=== PATIENT | male | born 1940 | race Caucasian/White ===

== ENCOUNTER 2018-11-19 15:24 | Outpatient (CLI) | payer MEDICARE, OTHER ==
[~2018-11-19] VITALS: Ht 165.1 cm; Wt 99.8 kg
[~2018-11-19 15:24] MED LIST: CEFU500T66 PO
[2018-11-19] MEDS ORDERED: albuterol 2.5 MG/3 ML nebule NEB ONE (16:05)
== END 2018-11-19 23:59 | disposition home or self-care (01) ==
LOC: RT 15:24
PROVIDERS: ATTEND Internal Medicine
DX: J44.9 Chronic obstructive pulmonary disease, unspecified (principal); I11.0 Hypertensive heart disease with heart failure; I50.9 Heart failure, unspecified; Z88.6 Allergy status to analgesic agent; Z91.018 Allergy to other foods
CPT/HCPCS: 94060; 94760

== ENCOUNTER 2018-12-15 16:45 | Inpatient (IN) | payer MEDICARE, OTHER | END 2018-12-18 12:40 | disposition home or self-care (01) | LOC: ER 16:45 → ED HOLD 20:35 → SUR 3N 23:30 | DX: N17.9 Acute kidney failure, unspecified (principal); I50.33 Acute on chronic diastolic (congestive) heart failure; I13.0 Hypertensive heart and chronic kidney disease with heart failure and stage 1 through stage 4 chronic kidney disease, or unspecified chronic kidney disease; Z96.641 Presence of right artificial hip joint; I48.91 Unspecified atrial fibrillation; N18.9 Chronic kidney disease, unspecified; G70.00 Myasthenia gravis without (acute) exacerbation; G47.33 Obstructive sleep apnea (adult) (pediatric) ==

== ENCOUNTER 2024-06-02 15:53 | Inpatient (IN) | payer MEDICARE, OTHER ==
[~2024-06-02] VITALS: Ht 177.8 cm; Wt 103.6 kg
[~2024-06-02 15:53] MED LIST changes: +ACET-2119 PO; +ALPR-624 PO; +ASPI-611 PO; -CEFU500T66 PO; +DOCU240C26 PO; +DOXY-411 PO; +FURO-149 PO; +HYDR-4383 PO; +IRBE150T51 PO; +METO1TAB25 PO; +MYCO250C46 PO; +ONDA4TAB6 PO; +PYRI60TA PO; +[UNRECOGNIZED DRUG - CODE] PO
[2024-06-02 16:14] LABS: BASOPHILS # (AUTO) 0.1 X10'3 (0-0.2); BASOPHILS % (AUTO) 0.7 % (0-1); EOSINOPHILS % (AUTO) 0.2 % (0-6); HEMATOCRIT 40.7 % (42.0-52.0); LYMPHOCYTES # (AUTO) 1.1 X10'3 (1.1-4.8); LYMPHOCYTES % (AUTO) 10.7 % (21-51); MEAN CORPUSCULAR HEMOGLOBIN 31.3 PG (27.0-31.0); MEAN CORPUSCULAR HGB CONC 31.9 g/dL (33.0-36.5); MEAN CORPUSCULAR VOLUME 98.3 FL (78-98); MEAN PLATELET VOLUME 7.4 FL (7.4-10.4); MONOCYTES # (AUTO) 0.7 X10'3 (0-0.9); MONOCYTES % (AUTO) 7.3 % (2-12); NEUTROPHILS # (AUTO) 8.2 X10'3 (1.8-7.7); NEUTROPHILS % (AUTO) 81.1 % (42-75); PLATELET COUNT 309 X10'3 (140-440); RED BLOOD COUNT 4.14 X10'6 (4.70-6.10); RED CELL DISTRIBUTION WIDTH 15.1 % (11.5-14.5); WHITE BLOOD COUNT 10.1 X10'3 (4.5-11.0)
[2024-06-02] MEDS ORDERED: diltiazem 5mg/ml 5ml inj. IV ONE (16:20)
[2024-06-02 16:28] LABS: ALANINE AMINOTRANSFERASE 8 U/L (12-78); ALBUMIN 4.2 G/DL (3.4-5.0); ALBUMIN/GLOBULIN RATIO 1.2 (1.1-1.5); ALKALINE PHOSPHATASE 98 IU/L (46-116); ANION GAP 11 (8-16); ASPARTATE AMINO TRANSFERASE 35 U/L (10-37); BILIRUBIN,TOTAL 0.8 MG/DL (0.1-1.0); BLOOD UREA NITROGEN 48 MG/DL (7-18); BUN/CREATININE RATIO 31.2 (10.0-20.0); CALCIUM 9.2 MG/DL (8.5-10.1); CHLORIDE 101 MMOL/L (99-107); CREATININE 1.54 MG/DL (0.60-1.10); GLUCOSE 114 MG/DL (70-104); POTASSIUM 5.3 MMOL/L (3.5-5.1); SODIUM 135 MMOL/L (135-145); TOTAL CARBON DIOXIDE 22.7 MMOL/L (24-32); TOTAL PROTEIN 7.6 G/DL (6.4-8.2); eCRCL 38 ML/MIN; eGFR 43 ML/MIN
[2024-06-02 16:35] LABS: PRO BRAIN NATRIURETIC PEPTIDE 10549 PG/ML (0-450)
[2024-06-02] MEDS: furosemide 10 MG/1 ML 10ml inj IV ONE (16:53)
[2024-06-02] MEDS: diltiazem 5mg/ml 5ml inj. IV ONE (17:01)
[2024-06-02] MEDS ORDERED: magnesium sulf-water 4G/100mL 100 ML IV PRN (18:25)
[2024-06-02] MEDS ORDERED: magnesium sulf-water 2g/50mL 50 ML IV PRN (18:25)
[2024-06-02] MEDS ORDERED: ondansetron/PF 4mg/2ml inj IV PRN (18:25)
[2024-06-02] MEDS ORDERED: potassium Cl 20 mEq SR tablet PO PRN ×2 (18:25)
[2024-06-02] MEDS ORDERED: bisacodyl 10mg suppository rectal RC PRN (18:25)
[2024-06-02] MEDS ORDERED: potassium Cl 40MEQ/1/2NS 520ml 520 ML IV PRN (18:25)
[2024-06-02] MEDS ORDERED: mag hydrox/Alum hydrox/simeth 30ml oral suspension PO PRN (18:25)
[2024-06-02] MEDS ORDERED: SPIR25TA5 PO (18:26)
[2024-06-02] MEDS ORDERED: MYCO500T5 PO (18:27)
[2024-06-02] MEDS ORDERED: APIX5TAB3 PO (18:29)
[2024-06-02] MEDS ORDERED: SACU1TAB PO (18:29)
[2024-06-02] MEDS ORDERED: PYRI60TA PO (18:33)
[2024-06-02] MEDS: PERFLUTREN PROTEIN-A MICROSPHR (Optison) 0.22 MG/ML 3ML VIAL IV ONE (18:50)
[2024-06-02] MEDS: K and/or MAG REPLACEMENT MC SCH (20:00)
[2024-06-02] MEDS: docusate sod 100mg capsule PO SCH (20:00)
[2024-06-02] MEDS: furosemide 40mg/4ml inj IV SCH (20:13)
[2024-06-02] MEDS: metoprolol tartrate 25mg tablet PO SCH (20:14)
[2024-06-02] MEDS: apixaban 2.5mg tablet PO SCH (20:14)
[2024-06-02 21:00] VITALS: BP 134/75; PULSE 94; RESP 20; TEMP 98.2; O2SAT 96
[2024-06-02 22:00] VITALS: BP 132/67; PULSE 94; RESP 28; TEMP 97; O2SAT 100
[2024-06-02] MEDS: sacubitril/valsartan 24mg-26mg tablet PO SCH (22:11)
[2024-06-02] MEDS: pyridostigmine br 60mg tablet PO SCH (22:11)
[2024-06-02] MEDS: mycophenolate mofetil 250mg capsule PO SCH (22:12)
[2024-06-03] VITALS (7 sets, daily range): BP systolic 107–134; BP diastolic 60–97; PULSE 75–92; RESP 16–24; TEMP 97.3–97.8; O2SAT 97–100
[2024-06-03] MEDS: acetaminophen 325mg tablet PO PRN ×2 (02:39→23:44)
[2024-06-03] MEDS ORDERED: ALPRAZolam 0.25mg tablet PO PRN (03:20)
[2024-06-03] MEDS: ALPRAZolam 0.5mg tablet PO PRN (03:44)
[2024-06-03 06:01] LABS: BASOPHILS % (AUTO) 0.3 % (0-1); EOSINOPHILS % (AUTO) 0.2 % (0-6); HEMATOCRIT 37.4 % (42.0-52.0); HEMOGLOBIN 12.1 g/dl (14.0-17.9); LYMPHOCYTES # (AUTO) 1.1 X10'3 (1.1-4.8); LYMPHOCYTES % (AUTO) 11.7 % (21-51); MEAN CORPUSCULAR HEMOGLOBIN 31.7 PG (27.0-31.0); MEAN CORPUSCULAR HGB CONC 32.5 g/dL (33.0-36.5); MEAN CORPUSCULAR VOLUME 97.8 FL (78-98); MEAN PLATELET VOLUME 7.8 FL (7.4-10.4); NEUTROPHILS % (AUTO) 76.8 % (42-75); PLATELET COUNT 266 X10'3 (140-440); RED BLOOD COUNT 3.82 X10'6 (4.70-6.10); WHITE BLOOD COUNT 9.1 X10'3 (4.5-11.0)
[2024-06-03 06:22] LABS: ALANINE AMINOTRANSFERASE 20 U/L (12-78); ALBUMIN 3.7 G/DL (3.4-5.0); ALBUMIN/GLOBULIN RATIO 1.2 (1.1-1.5); ALKALINE PHOSPHATASE 88 IU/L (46-116); ANION GAP 13 (8-16); ASPARTATE AMINO TRANSFERASE 22 U/L (10-37); BILIRUBIN,TOTAL 0.8 MG/DL (0.1-1.0); BLOOD UREA NITROGEN 47 MG/DL (7-18); BUN/CREATININE RATIO 30.7 (10.0-20.0); CALCIUM 8.7 MG/DL (8.5-10.1); CHLORIDE 101 MMOL/L (99-107); CREATININE 1.53 MG/DL (0.60-1.10); GLUCOSE 107 MG/DL (70-104); POTASSIUM 4.6 MMOL/L (3.5-5.1); SODIUM 136 MMOL/L (135-145); TOTAL CARBON DIOXIDE 22.1 MMOL/L (24-32); TOTAL PROTEIN 6.9 G/DL (6.4-8.2); eCRCL 38 ML/MIN; eGFR 44 ML/MIN
[2024-06-03] MEDS: spironolactone 25 MG tablet PO SCH (09:14)
[2024-06-03] MEDS ORDERED: ACET-3414 (21:00)
[2024-06-04 02:00] VITALS: BP 110/53; PULSE 94; RESP 21; TEMP 97.2; O2SAT 97
[2024-06-04] MEDS: nystatin 15 GM powder TP SCH (03:51)
[2024-06-04 06:00] VITALS: BP 116/69; PULSE 95; RESP 27; TEMP 97.2; O2SAT 97
[2024-06-04 06:07] LABS: BASOPHILS % (AUTO) 0.3 % (0-1); EOSINOPHILS # (AUTO) 0.1 X10'3 (0-0.9); EOSINOPHILS % (AUTO) 0.7 % (0-6); HEMATOCRIT 38.4 % (42.0-52.0); HEMOGLOBIN 12.3 g/dl (14.0-17.9); LYMPHOCYTES # (AUTO) 1.1 X10'3 (1.1-4.8); MEAN CORPUSCULAR HEMOGLOBIN 31.5 PG (27.0-31.0); MEAN CORPUSCULAR HGB CONC 31.9 g/dL (33.0-36.5); MEAN CORPUSCULAR VOLUME 98.8 FL (78-98); MONOCYTES # (AUTO) 0.9 X10'3 (0-0.9); MONOCYTES % (AUTO) 11.8 % (2-12); NEUTROPHILS # (AUTO) 5.6 X10'3 (1.8-7.7); NEUTROPHILS % (AUTO) 73.2 % (42-75); PLATELET COUNT 262 X10'3 (140-440); RED BLOOD COUNT 3.88 X10'6 (4.70-6.10); RED CELL DISTRIBUTION WIDTH 15.1 % (11.5-14.5); WHITE BLOOD COUNT 7.6 X10'3 (4.5-11.0)
[2024-06-04 06:21] LABS: ALANINE AMINOTRANSFERASE 17 U/L (12-78); ALBUMIN 3.6 G/DL (3.4-5.0); ALBUMIN/GLOBULIN RATIO 1.2 (1.1-1.5); ALKALINE PHOSPHATASE 83 IU/L (46-116); ANION GAP 10 (8-16); ASPARTATE AMINO TRANSFERASE 22 U/L (10-37); BILIRUBIN,TOTAL 0.6 MG/DL (0.1-1.0); BLOOD UREA NITROGEN 53 MG/DL (7-18); BUN/CREATININE RATIO 35.1 (10.0-20.0); CALCIUM 8.6 MG/DL (8.5-10.1); CHLORIDE 104 MMOL/L (99-107); CREATININE 1.51 MG/DL (0.60-1.10); GLUCOSE 129 MG/DL (70-104); POTASSIUM 4.3 MMOL/L (3.5-5.1); SODIUM 137 MMOL/L (135-145); TOTAL CARBON DIOXIDE 23.2 MMOL/L (24-32); TOTAL PROTEIN 6.7 G/DL (6.4-8.2); eCRCL 38 ML/MIN; eGFR 44 ML/MIN
[2024-06-04 08:00] VITALS: RESP 27; O2SAT 97
[2024-06-04] MEDS: metoprolol succinate 25mg (24-HOUR) SR. Tablet PO SCH (08:54)
[2024-06-04 11:00] VITALS: BP 105/63; PULSE 101; RESP 26; TEMP 96.7; O2SAT 97
[2024-06-04] MEDS ORDERED: APIX2.5T PO (14:46)
[2024-06-04] MEDS ORDERED: METO-384 PO (14:46)
== END 2024-06-04 18:13 | disposition home or self-care (01) | DRG 291 ==
LOC: ER 15:53 → ED HOLD 17:26 → UNDOADMIN 18:21 → ED HOLD 20:40 → PCU 3S 20:40
PROVIDERS: ADMIT Family Medicine; ATTEND Family Medicine
DX: I13.0 Hypertensive heart and chronic kidney disease with heart failure and stage 1 through stage 4 chronic kidney disease, or unspecified chronic kidney disease (principal); I50.23 Acute on chronic systolic (congestive) heart failure; I48.20 Chronic atrial fibrillation, unspecified; G70.00 Myasthenia gravis without (acute) exacerbation; E87.5 Hyperkalemia; E78.5 Hyperlipidemia, unspecified; G47.33 Obstructive sleep apnea (adult) (pediatric); I87.2 Venous insufficiency (chronic) (peripheral); N18.9 Chronic kidney disease, unspecified; Z88.6 Allergy status to analgesic agent; Z79.82 Long term (current) use of aspirin; Z79.01 Long term (current) use of anticoagulants; Z79.899 Other long term (current) drug therapy; Z83.3 Family history of diabetes mellitus; Z95.810 Presence of automatic (implantable) cardiac defibrillator; Z88.8 Allergy status to other drugs, medicaments and biological substances; Z91.048 Other nonmedicinal substance allergy status
CPT/HCPCS: 36415; 71045; 80053; 83735; 83880; 84484; 85025; 87081; 93005; 93306; 97161; 97530; 99285; A4615; G0378; J1940; J3490; J7517

== ENCOUNTER 2024-07-09 13:40 | Inpatient (IN) | payer MEDICARE, OTHER ==
[~2024-07-09] VITALS: Ht 167.6 cm; Wt 102.7 kg
[~2024-07-09 13:40] MED LIST changes: +ACET-3414; +APIX2.5T PO; -ASPI-611 PO; -DOXY-411 PO; -IRBE150T51 PO; +METO-384 PO; -METO1TAB25 PO; -MYCO250C46 PO; +MYCO500T5 PO; +SACU1TAB PO; +SPIR25TA5 PO; -[UNRECOGNIZED DRUG - CODE] PO
[2024-07-09] MEDS: diltiazem 5mg/ml 5ml inj. IV ONE (14:07)
[2024-07-09 14:29] LABS: BASOPHILS % (AUTO) 0.2 % (0-1); EOSINOPHILS % (AUTO) 0 % (0-6); HEMATOCRIT 39.4 % (42.0-52.0); HEMOGLOBIN 12.4 g/dl (14.0-17.9); LYMPHOCYTES # (AUTO) 0.9 X10'3 (1.1-4.8); LYMPHOCYTES % (AUTO) 6.5 % (21-51); MEAN CORPUSCULAR HEMOGLOBIN 30.3 PG (27.0-31.0); MEAN CORPUSCULAR HGB CONC 31.5 g/dL (33.0-36.5); MEAN CORPUSCULAR VOLUME 96.3 FL (78-98); MEAN PLATELET VOLUME 7.2 FL (7.4-10.4); MONOCYTES # (AUTO) 0.8 X10'3 (0-0.9); MONOCYTES % (AUTO) 5.9 % (2-12); NEUTROPHILS # (AUTO) 11.9 X10'3 (1.8-7.7); NEUTROPHILS % (AUTO) 87.4 % (42-75); PLATELET COUNT 352 X10'3 (140-440); RED BLOOD COUNT 4.09 X10'6 (4.70-6.10); RED CELL DISTRIBUTION WIDTH 14.3 % (11.5-14.5); WHITE BLOOD COUNT 13.6 X10'3 (4.5-11.0)
[2024-07-09 14:36] LABS: ALANINE AMINOTRANSFERASE 17 U/L (12-78); ALBUMIN 3.9 G/DL (3.4-5.0); ALBUMIN/GLOBULIN RATIO 1.3 (1.1-1.5); ALKALINE PHOSPHATASE 110 IU/L (46-116); ANION GAP 17 (8-16); ASPARTATE AMINO TRANSFERASE 35 U/L (10-37); BILIRUBIN,TOTAL 0.7 MG/DL (0.1-1.0); BLOOD UREA NITROGEN 52 MG/DL (7-18); BUN/CREATININE RATIO 26.4 (10.0-20.0); CALCIUM 9.2 MG/DL (8.5-10.1); CHLORIDE 94 MMOL/L (99-107); CREATININE 1.97 MG/DL (0.60-1.10); GLUCOSE 140 MG/DL (70-104); POTASSIUM 4.6 MMOL/L (3.5-5.1); SODIUM 128 MMOL/L (135-145); TOTAL CARBON DIOXIDE 17.3 MMOL/L (24-32); eCRCL 26 ML/MIN; eGFR 33 ML/MIN
[2024-07-09] MEDS: diltiazem-NS 100mg/100ml 100 ML IV SCH (14:36)
[2024-07-09 14:38] LABS: BILIRUBIN,URINE NEGATIVE (Neg); CLARITY,URINE CLOUDY (Clear); COLOR,URINE YELLOW (Yellow); GLUCOSE, URINE NEGATIVE (Neg); KETONES,URINE NEGATIVE (Neg); LEUKOCYTE ESTERASE ,URINE SMALL (Neg); NITRITES, URINE NEGATIVE (Neg); OCCULT BLOOD,URINE TRACE-INTACT (Neg); PH,URINE 5.5 (4.8-8.0); PROTEIN,URINE 100 mg/dl (Neg); UROBILINOGEN,URINE 0.2 E.U/dL (0.2-1.0)
[2024-07-09 14:42] LABS: UA COLLECTION TYPE CLN CATCH MIDSTREAM
[2024-07-09 14:43] LABS: SQUAMOUS EPITHELIAL CELL,UR MODERATE /LPF (FEW)
[2024-07-09 14:44] LABS: BILIRUBIN,DIRECT 0.4 MG/DL (0-0.3); ETHANOL < 10 MG/DL (<10); PRO BRAIN NATRIURETIC PEPTIDE 19308 PG/ML (0-450)
[2024-07-09 14:45] LABS: WBC CLUMPS,URINE MODERATE /HPF (NEGATIVE); WBC,URINE TNTC /HPF (0-4)
[2024-07-09 14:46] LABS: AMORPHOUS URATES 2+; BACTERIA,URINE 2+ /HPF (Neg); TRANSITIONAL EPI CELLS,URINE FEW /HPF
[2024-07-09] MEDS: normal saline 500ml IV soln 500 ML IV ONE (15:00)
[2024-07-09] MEDS: CefTRIAXone 2gm/D5W 50ml BAG 50 ML IV ONE (15:19)
[2024-07-09] MEDS ORDERED: acetaminophen 650mg rectal suppository RC PRN (15:50)
[2024-07-09] MEDS ORDERED: magnesium sulf-water 2g/50mL 50 ML IV PRN (15:50)
[2024-07-09] MEDS ORDERED: potassium Cl 40MEQ/1/2NS 520ml 520 ML IV PRN (15:50)
[2024-07-09] MEDS ORDERED: ondansetron/PF 4mg/2ml inj IV PRN (15:50)
[2024-07-09] MEDS ORDERED: magnesium Cl slow-release 64mg tablet PO PRN (15:50)
[2024-07-09] MEDS ORDERED: potassium Cl 20 mEq SR tablet PO PRN ×2 (15:50)
[2024-07-09] MEDS ORDERED: magnesium sulf-water 4G/100mL 100 ML IV PRN (15:50)
[2024-07-09] MEDS: normal saline 1000ml 1,000 ML IV SCH (16:01)
[2024-07-09] MEDS ORDERED: MYCO250C46 PO (16:35)
[2024-07-09] MEDS ORDERED: ALPR0.255 PO (16:35)
[2024-07-09] MEDS ORDERED: FURO40TA4 PO (16:43)
[2024-07-09] MEDS ORDERED: PYRI60TA PO ×2 (16:43→16:44)
[2024-07-09 23:50] VITALS: BP 138/65; PULSE 61; RESP 18; TEMP 97.7; O2SAT 93
[2024-07-09] MEDS: K and/or MAG REPLACEMENT MC SCH (23:50)
[2024-07-10 06:00] VITALS: BP 121/61; PULSE 78; RESP 13; TEMP 97.4; O2SAT 96
[2024-07-10] MEDS: mycophenolate mofetil 250mg capsule PO SCH (06:47)
[2024-07-10] MEDS: pyridostigmine br 60mg tablet PO SCH (06:48)
[2024-07-10] MEDS: sacubitril/valsartan 24mg-26mg tablet PO SCH (06:48)
[2024-07-10 08:03] LABS: BASOPHILS % (AUTO) 0.3 % (0-1); EOSINOPHILS % (AUTO) 0.1 % (0-6); HEMATOCRIT 36.5 % (42.0-52.0); HEMOGLOBIN 11.7 g/dl (14.0-17.9); LYMPHOCYTES # (AUTO) 1.5 X10'3 (1.1-4.8); LYMPHOCYTES % (AUTO) 14.9 % (21-51); MEAN CORPUSCULAR HEMOGLOBIN 30.9 PG (27.0-31.0); MEAN CORPUSCULAR HGB CONC 32.1 g/dL (33.0-36.5); MEAN CORPUSCULAR VOLUME 96.3 FL (78-98); MEAN PLATELET VOLUME 7.7 FL (7.4-10.4); MONOCYTES # (AUTO) 1.2 X10'3 (0-0.9); MONOCYTES % (AUTO) 11.9 % (2-12); NEUTROPHILS # (AUTO) 7.3 X10'3 (1.8-7.7); NEUTROPHILS % (AUTO) 72.8 % (42-75); PLATELET COUNT 322 X10'3 (140-440); RED BLOOD COUNT 3.79 X10'6 (4.70-6.10); RED CELL DISTRIBUTION WIDTH 13.9 % (11.5-14.5)
[2024-07-10 08:33] LABS: ALBUMIN 3.5 G/DL (3.4-5.0); ANION GAP 17 (8-16); BLOOD UREA NITROGEN 56 MG/DL (7-18); BUN/CREATININE RATIO 28.1 (10.0-20.0); CALCIUM 8.6 MG/DL (8.5-10.1); CHLORIDE 97 MMOL/L (99-107); CREATININE 1.99 MG/DL (0.60-1.10); GLUCOSE 89 MG/DL (70-104); POTASSIUM 4.4 MMOL/L (3.5-5.1); SODIUM 132 MMOL/L (135-145); TOTAL CARBON DIOXIDE 18.2 MMOL/L (24-32); eCRCL 25 ML/MIN; eGFR 32 ML/MIN
[2024-07-10] MEDS: apixaban 2.5mg tablet PO SCH (09:10)
[2024-07-10] MEDS: metoprolol succinate 25mg (24-HOUR) SR. Tablet PO SCH (09:12)
[2024-07-10 10:00] VITALS: BP 116/64; PULSE 86; RESP 14; TEMP 97.6; O2SAT 96
[2024-07-10] MEDS: albumin (human) 25% 100 ML IV solution IV ONE (15:02)
[2024-07-10] MEDS: acetaminophen 325mg tablet PO PRN (15:07)
[2024-07-10 18:00] VITALS: BP 145/65; PULSE 71; RESP 16; TEMP 97.3; O2SAT 95
[2024-07-10 22:00] VITALS: BP 136/50; PULSE 69; RESP 16; TEMP 98.1; O2SAT 95
[2024-07-11 06:00] VITALS: BP 133/71; PULSE 73; RESP 20; TEMP 98.4; O2SAT 94
[2024-07-11 07:06] LABS: BASOPHILS % (AUTO) 0.2 % (0-1); EOSINOPHILS % (AUTO) 0 % (0-6); HEMATOCRIT 39.5 % (42.0-52.0); HEMOGLOBIN 12.3 g/dl (14.0-17.9); LYMPHOCYTES # (AUTO) 1.3 X10'3 (1.1-4.8); LYMPHOCYTES % (AUTO) 13.1 % (21-51); MEAN CORPUSCULAR HEMOGLOBIN 30.4 PG (27.0-31.0); MEAN CORPUSCULAR HGB CONC 31.1 g/dL (33.0-36.5); MEAN CORPUSCULAR VOLUME 97.8 FL (78-98); MEAN PLATELET VOLUME 7.2 FL (7.4-10.4); MONOCYTES # (AUTO) 0.9 X10'3 (0-0.9); NEUTROPHILS # (AUTO) 7.5 X10'3 (1.8-7.7); NEUTROPHILS % (AUTO) 77.7 % (42-75); PLATELET COUNT 310 X10'3 (140-440); RED BLOOD COUNT 4.04 X10'6 (4.70-6.10); RED CELL DISTRIBUTION WIDTH 14.8 % (11.5-14.5); WHITE BLOOD COUNT 9.6 X10'3 (4.5-11.0)
[2024-07-11 07:16] LABS: ALBUMIN 3.7 G/DL (3.4-5.0); ANION GAP 17 (8-16); BLOOD UREA NITROGEN 61 MG/DL (7-18); BUN/CREATININE RATIO 30.2 (10.0-20.0); CALCIUM 8.8 MG/DL (8.5-10.1); CHLORIDE 98 MMOL/L (99-107); CREATININE 2.02 MG/DL (0.60-1.10); GLUCOSE 119 MG/DL (70-104); POTASSIUM 4.6 MMOL/L (3.5-5.1); SODIUM 134 MMOL/L (135-145); TOTAL CARBON DIOXIDE 18.8 MMOL/L (24-32); eCRCL 25 ML/MIN; eGFR 32 ML/MIN
[2024-07-11 10:00] VITALS: BP 121/69; PULSE 72; RESP 16; TEMP 98.1; O2SAT 94
[2024-07-11] MEDS: albumin (Human) 5% 250ml 250 ML IV ONE (16:52)
[2024-07-11] MEDS: furosemide 20 MG/2 ML vial IV SCH (16:54)
[2024-07-11 18:00] VITALS: BP 131/73; PULSE 71; RESP 16; TEMP 97.4; O2SAT 96
[2024-07-11 20:00] VITALS: RESP 16; O2SAT 96
[2024-07-11] MEDS: CefTRIAXone 2gm/D5W 50ml BAG 50 ML IV SCH (21:31)
[2024-07-11 22:00] VITALS: BP_SYST 110; BP_SYST 131; BP_DIAS 73; BP_DIAS 83; PULSE 62; PULSE 71; RESP 16; RESP 18; TEMP 90; TEMP 97.4; O2SAT 93; O2SAT 96
[2024-07-12] VITALS (9 sets, daily range): BP systolic 115–135; BP diastolic 66–96; PULSE 74–91; RESP 16–25; TEMP 97.5–98.7; O2SAT 92–100
[2024-07-12] MEDS: ALPRAZolam 0.25mg tablet PO PRN (02:17)
[2024-07-12] MEDS: furosemide 40mg/4ml inj ONE (03:04)
[2024-07-12 03:05] LABS: ABG BASE EXCESS -20.2 mmol/L (-2.0-3.0); ABG HCO3 9.8 mmol/L (21.0-28.0); ABG OXYGEN SATURATION 97.1 % (94.0-98.0); ABG PCO2 (T) 35.3 mmHg (35.0-48.0); ABG PH (T) 7.053 (7.350-7.450); ABG PO2 (T) 103.8 mmHg (83.0-108.0); ALLEN'S TEST Modified; FCOHb 0.9 % (0.5-1.5); FHHb 2.9 % (0.0-5.0); FLOW 6 L/min; FMetHb 0.3 % (0.0-1.5); FO2Hb 95.9 % (94.0-98.0); MODE Simple Mask; PATIENT TEMPERATURE 35.8; TOTAL HEMOGLOBIN 14.3 G/dl (13.5-17.5)
[2024-07-12] MEDS: furosemide 40mg/4ml inj IV ONE ×2 (03:07→09:22)
[2024-07-12 03:18] LABS: BASOPHILS % (AUTO) 0.2 % (0-1); EOSINOPHILS % (AUTO) 0.1 % (0-6); HEMOGLOBIN 12.8 g/dl (14.0-17.9); LYMPHOCYTES # (AUTO) 2.7 X10'3 (1.1-4.8); LYMPHOCYTES % (AUTO) 18.9 % (21-51); MEAN CORPUSCULAR HEMOGLOBIN 30.8 PG (27.0-31.0); MEAN CORPUSCULAR HGB CONC 31.3 g/dL (33.0-36.5); MEAN CORPUSCULAR VOLUME 98.5 FL (78-98); MEAN PLATELET VOLUME 7.5 FL (7.4-10.4); MONOCYTES # (AUTO) 1.4 X10'3 (0-0.9); NEUTROPHILS % (AUTO) 70.8 % (42-75); PLATELET COUNT 321 X10'3 (140-440); RED BLOOD COUNT 4.16 X10'6 (4.70-6.10); RED CELL DISTRIBUTION WIDTH 15.1 % (11.5-14.5); WHITE BLOOD COUNT 14.2 X10'3 (4.5-11.0)
[2024-07-12 03:40] LABS: ALBUMIN 3.8 G/DL (3.4-5.0); ANION GAP 17 (8-16); BLOOD UREA NITROGEN 64 MG/DL (7-18); BUN/CREATININE RATIO 29.2 (10.0-20.0); CALCIUM 8.3 MG/DL (8.5-10.1); CHLORIDE 100 MMOL/L (99-107); CREATININE 2.19 MG/DL (0.60-1.10); GLUCOSE 199 MG/DL (70-104); MAGNESIUM 2.2 MG/DL (1.5-2.4); POTASSIUM 4.2 MMOL/L (3.5-5.1); SODIUM 133 MMOL/L (135-145); TOTAL CARBON DIOXIDE 16.1 MMOL/L (24-32); eCRCL 23 ML/MIN; eGFR 29 ML/MIN
[2024-07-12 03:54] LABS: PRO BRAIN NATRIURETIC PEPTIDE > 30000 PG/ML (0-450)
[2024-07-12] MEDS: sodium bicarbonate 1meq/ml inj 150 ML in dextrose 5%-water 1,000 ML IV SCH (04:36)
[2024-07-12 10:22] LABS: ALBUMIN 3.6 G/DL (3.4-5.0); ANION GAP 11 (8-16); BLOOD UREA NITROGEN 67 MG/DL (7-18); BUN/CREATININE RATIO 31.5 (10.0-20.0); CALCIUM 8.6 MG/DL (8.5-10.1); CHLORIDE 101 MMOL/L (99-107); CREATININE 2.13 MG/DL (0.60-1.10); GLUCOSE 182 MG/DL (70-104); POTASSIUM 4.3 MMOL/L (3.5-5.1); SODIUM 134 MMOL/L (135-145); TOTAL CARBON DIOXIDE 22.3 MMOL/L (24-32); eCRCL 24 ML/MIN; eGFR 30 ML/MIN
[2024-07-12] MEDS ORDERED: HYDROcodone/acetaminophen 5mg/325mg tablet PO PRN (12:30)
[2024-07-12 13:56] LABS: PRO BRAIN NATRIURETIC PEPTIDE > 30000 PG/ML (0-450)
[2024-07-12] MEDS: nystatin 15 GM powder TP SCH (14:15)
[2024-07-12 14:43] LABS: ABG BASE EXCESS -7.8 mmol/L (-2.0-3.0); ABG HCO3 18.4 mmol/L (21.0-28.0); ABG OXYGEN SATURATION 98.3 % (94.0-98.0); ABG PCO2 (T) 38.7 mmHg (35.0-48.0); ABG PH (T) 7.291 (7.350-7.450); ABG PO2 (T) 107.1 mmHg (83.0-108.0); ALLEN'S TEST POSITIVE; FCOHb 0.5 % (0.5-1.5); FHHb 1.7 % (0.0-5.0); FLOW 2 L/min; FMetHb 0.3 % (0.0-1.5); FO2Hb 97.5 % (94.0-98.0); MODE NASAL CANNULA; PATIENT TEMPERATURE 36.5; TOTAL HEMOGLOBIN 13.2 G/dl (13.5-17.5)
[2024-07-12] MEDS: pyridostigmine br 60mg tablet PO SCH (22:09)
[2024-07-13] VITALS (8 sets, daily range): BP systolic 103–139; BP diastolic 54–81; PULSE 83–93; RESP 15–24; TEMP 97.4–98.5; O2SAT 91–98
[2024-07-13] MEDS ORDERED: morphine ORAL 5MG/0.25 ML (Conc. morphine) oral syringe PO PRN (11:40)
[2024-07-13] MEDS ORDERED: LORazepam 0.5 MG tablet PO PRN (11:40)
[2024-07-13] MEDS: acetaminophen 325mg tablet PO PRN (17:41)
[2024-07-13] MEDS: mycophenolate mofetil 250mg capsule PO SCH (17:42)
[2024-07-13] MEDS: pyridostigmine br 60mg tablet PO SCH (17:42)
[2024-07-13] MEDS: spironolactone 25 MG tablet PO SCH (18:02)
[2024-07-13] MEDS: sacubitril/valsartan 24mg-26mg tablet PO SCH (20:08)
[2024-07-13] MEDS: furosemide 40mg tablet PO SCH (20:08)
[2024-07-13] MEDS: levoFLOXACIN-Levaquin 500mg/D5 100 ML IV SCH (23:25)
[2024-07-14] VITALS (7 sets, daily range): BP systolic 100–145; BP diastolic 55–79; PULSE 81–96; RESP 17–23; TEMP 96.3–98.2; O2SAT 94–99
[2024-07-14] MEDS: furosemide 40mg/4ml inj IV ONE (03:20)
[2024-07-14] MEDS ORDERED: morphine 10mg/0.5ml (conc. morphine) oral syringe PO PRN (09:51)
[2024-07-14 09:55] LABS: TOTAL PROTEIN,URINE RANDOM 161.8 MG/DL
[2024-07-14] MEDS: HYDROcodone/acetaminophen 5mg/325mg tablet PO PRN (15:04)
[2024-07-14 15:07] LABS: BASOPHILS % (AUTO) 0.1 % (0-1); EOSINOPHILS % (AUTO) 0.3 % (0-6); HEMATOCRIT 39.1 % (42.0-52.0); HEMOGLOBIN 12.2 g/dl (14.0-17.9); LYMPHOCYTES # (AUTO) 1.1 X10'3 (1.1-4.8); LYMPHOCYTES % (AUTO) 10.7 % (21-51); MEAN CORPUSCULAR HEMOGLOBIN 30.7 PG (27.0-31.0); MEAN CORPUSCULAR HGB CONC 31.3 g/dL (33.0-36.5); MEAN CORPUSCULAR VOLUME 98.1 FL (78-98); MEAN PLATELET VOLUME 7.5 FL (7.4-10.4); MONOCYTES # (AUTO) 1.5 X10'3 (0-0.9); MONOCYTES % (AUTO) 13.8 % (2-12); NEUTROPHILS # (AUTO) 7.9 X10'3 (1.8-7.7); NEUTROPHILS % (AUTO) 75.1 % (42-75); PLATELET COUNT 277 X10'3 (140-440); RED BLOOD COUNT 3.99 X10'6 (4.70-6.10); RED CELL DISTRIBUTION WIDTH 14.8 % (11.5-14.5); WHITE BLOOD COUNT 10.6 X10'3 (4.5-11.0)
[2024-07-14 15:39] LABS: ALANINE AMINOTRANSFERASE 18 U/L (12-78); ALBUMIN 3.4 G/DL (3.4-5.0); ALBUMIN/GLOBULIN RATIO 1.3 (1.1-1.5); ALKALINE PHOSPHATASE 85 IU/L (46-116); ANION GAP 10 (8-16); ASPARTATE AMINO TRANSFERASE 19 U/L (10-37); BILIRUBIN,TOTAL 0.4 MG/DL (0.1-1.0); BLOOD UREA NITROGEN 78 MG/DL (7-18); BUN/CREATININE RATIO 33.9 (10.0-20.0); CHLORIDE 103 MMOL/L (99-107); GLUCOSE 124 MG/DL (70-104); POTASSIUM 4.1 MMOL/L (3.5-5.1); SODIUM 138 MMOL/L (135-145); TOTAL CARBON DIOXIDE 24.6 MMOL/L (24-32); TOTAL PROTEIN 6.1 G/DL (6.4-8.2); eCRCL 22 ML/MIN; eGFR 27 ML/MIN
[2024-07-15] VITALS (7 sets, daily range): BP systolic 95–113; BP diastolic 52–68; PULSE 81–129; RESP 16–24; TEMP 97.5–98.1; O2SAT 92–97
[2024-07-15] MEDS: furosemide 40mg tablet PO SCH (09:32)
[2024-07-15] MEDS ORDERED: albuterol 2.5 MG/3 ML nebule NEB PRN (10:35)
[2024-07-15 13:59] LABS: ABG BASE EXCESS -4.9 mmol/L (-2.0-3.0); ABG OXYGEN SATURATION 98.6 % (94.0-98.0); ABG PCO2 (T) 35.8 mmHg (35.0-48.0); ABG PH (T) 7.362 (7.350-7.450); ABG PO2 (T) 110.2 mmHg (83.0-108.0); ALLEN'S TEST POSITIVE; FCOHb 0.6 % (0.5-1.5); FHHb 1.4 % (0.0-5.0); FMetHb 0.3 % (0.0-1.5); FO2Hb 97.7 % (94.0-98.0); MODE NASAL CANNULA; PATIENT TEMPERATURE 36.7; TOTAL HEMOGLOBIN 12.9 G/dl (13.5-17.5)
[2024-07-16] MEDS ORDERED: levoFLOXACIN-Levaquin 250mg/D5 50 ML IV SCH (08:00)
== END 2024-07-15 16:40 | DRG 291 ==
LOC: ER 13:41 → ED HOLD 15:53 → ORTHO 4S 23:49 → PCU 3S 07-12 16:00
PROVIDERS: ADMIT Internal Medicine; ATTEND Internal Medicine
DX: I13.0 Hypertensive heart and chronic kidney disease with heart failure and stage 1 through stage 4 chronic kidney disease, or unspecified chronic kidney disease (principal); G93.41 Metabolic encephalopathy; I50.23 Acute on chronic systolic (congestive) heart failure; J96.00 Acute respiratory failure, unspecified whether with hypoxia or hypercapnia; E87.1 Hypo-osmolality and hyponatremia; N17.9 Acute kidney failure, unspecified; I48.20 Chronic atrial fibrillation, unspecified; N39.0 Urinary tract infection, site not specified; E87.20 Acidosis, unspecified; Z66 Do not resuscitate; N18.30 Chronic kidney disease, stage 3 unspecified; T50.2X5A Adverse effect of carbonic-anhydrase inhibitors, benzothiadiazides and other diuretics, initial encounter; Z88.8 Allergy status to other drugs, medicaments and biological substances; Z95.810 Presence of automatic (implantable) cardiac defibrillator; Z79.899 Other long term (current) drug therapy; Z88.6 Allergy status to analgesic agent; Z91.09 Other allergy status, other than to drugs and biological substances; Z79.01 Long term (current) use of anticoagulants; Y92.89 Other specified places as the place of occurrence of the external cause; Z51.5 Encounter for palliative care; Z83.3 Family history of diabetes mellitus
CPT/HCPCS: 36415; 36600; 71045; 76705; 80048; 80053; 80076; 80320; 81001; 82570; 82803; 82948; 83735; 83880; 83935; 84133; 84156; 84300; 84484; 84540; 85018; 85025; 87077; 87081; 87088; 87186; 93005; 94760; 94799; 96365; 96367; 97110; 97116; 97161; 97162; 97530; 97535; 99285; A4314; A4615; A5200; A6590; G0378; J0696; J1940; J1956; J3490; J7030; J7040; J7070; J7517; P9045; P9047

== ENCOUNTER 2024-09-30 13:47 | Inpatient (IN) | payer MEDICARE, OTHER ==
[~2024-09-30] VITALS: Ht 165.1 cm; Wt 89.0 kg
[~2024-09-30 13:47] MED LIST changes: -ACET-2119 PO; -ACET-3414; -ALPR-624 PO; +ALPR0.255 PO; -APIX2.5T PO; -DOCU240C26 PO; -FURO-149 PO; +FURO40TA4 PO; -HYDR-4383 PO; +MYCO250C46 PO; -MYCO500T5 PO; -ONDA4TAB6 PO
[2024-09-30] MEDS: CefTRIAXone 2gm/D5W 50ml BAG 50 ML IV ONE (15:10)
[2024-09-30 15:20] LABS: BILIRUBIN,URINE SMALL (Neg); CLARITY,URINE TURBID (Clear); COLOR,URINE YELLOW (Yellow); GLUCOSE, URINE NEGATIVE (Neg); KETONES,URINE TRACE mg/dl (Neg); LEUKOCYTE ESTERASE ,URINE MODERATE (Neg); NITRITES, URINE NEGATIVE (Neg); OCCULT BLOOD,URINE LARGE (Neg); PH,URINE 5.5 (4.8-8.0); PROTEIN,URINE 100 mg/dl (Neg); UROBILINOGEN,URINE 0.2 E.U/dL (0.2-1.0)
[2024-09-30 15:29] LABS: BACTERIA,URINE 2+ /HPF (Neg); UA COLLECTION TYPE CLN CATCH MIDSTREAM; WBC,URINE TNTC /HPF (0-4)
[2024-09-30 15:30] LABS: WBC CLUMPS,URINE MODERATE /HPF (NEGATIVE)
[2024-09-30 16:01] LABS: BASOPHILS # (AUTO) 0.1 X10'3 (0-0.2); BASOPHILS % (AUTO) 0.4 % (0-1); EOSINOPHILS % (AUTO) 0 % (0-6); HEMOGLOBIN 10.7 g/dl (14.0-17.9); LYMPHOCYTES # (AUTO) 1.5 X10'3 (1.1-4.8); LYMPHOCYTES % (AUTO) 7.8 % (21-51); MEAN CORPUSCULAR HEMOGLOBIN 28.4 PG (27.0-31.0); MEAN CORPUSCULAR HGB CONC 31.5 g/dL (33.0-36.5); MEAN CORPUSCULAR VOLUME 90.4 FL (78-98); MEAN PLATELET VOLUME 7.2 FL (7.4-10.4); MONOCYTES # (AUTO) 1.7 X10'3 (0-0.9); MONOCYTES % (AUTO) 8.7 % (2-12); NEUTROPHILS # (AUTO) 16.1 X10'3 (1.8-7.7); NEUTROPHILS % (AUTO) 83.1 % (42-75); PLATELET COUNT 494 X10'3 (140-440); RED BLOOD COUNT 3.77 X10'6 (4.70-6.10); RED CELL DISTRIBUTION WIDTH 16.5 % (11.5-14.5); WHITE BLOOD COUNT 19.4 X10'3 (4.5-11.0)
[2024-09-30 16:13] LABS: ALBUMIN 3.8 G/DL (3.4-5.0); ANION GAP 14 (8-16); BLOOD UREA NITROGEN 76 MG/DL (7-18); BUN/CREATININE RATIO 26.6 (10.0-20.0); CHLORIDE 100 MMOL/L (99-107); CREATININE 2.86 MG/DL (0.60-1.10); GLUCOSE 124 MG/DL (70-104); POTASSIUM 4.7 MMOL/L (3.5-5.1); SODIUM 135 MMOL/L (135-145); eCRCL 17 ML/MIN; eGFR 21 ML/MIN
[2024-09-30] MEDS: normal saline 1000ML IV soln IVB ONE (17:26)
[2024-09-30 18:08] LABS: PRO BRAIN NATRIURETIC PEPTIDE > 30000 PG/ML (0-450)
[2024-09-30] MEDS ORDERED: potassium Cl 40MEQ/1/2NS 520ml 520 ML IV PRN (18:25)
[2024-09-30] MEDS ORDERED: magnesium Cl slow-release 64mg tablet PO PRN (18:25)
[2024-09-30] MEDS ORDERED: magnesium sulf-water 4G/100mL 100 ML IV PRN (18:25)
[2024-09-30] MEDS ORDERED: docusate sod 100mg capsule PO PRN (18:25)
[2024-09-30] MEDS ORDERED: magnesium hydroxide 30ml (MOM) UD suspension PO PRN (18:25)
[2024-09-30] MEDS ORDERED: morphine 2 MG/ML inj. syringe IV PRN (18:25)
[2024-09-30] MEDS ORDERED: mag hydrox/Alum hydrox/simeth 30ml oral suspension PO PRN (18:25)
[2024-09-30] MEDS ORDERED: magnesium sulf-water 2g/50mL 50 ML IV PRN (18:25)
[2024-09-30] MEDS ORDERED: potassium Cl 20 mEq SR tablet PO PRN ×2 (18:25)
[2024-09-30] MEDS ORDERED: METO-411 PO (19:06)
[2024-09-30] MEDS ORDERED: APIX2.5T PO (19:06)
[2024-09-30 19:25] LABS: HEMOGLOBIN A1C 5.5 % (4.5-6.2)
[2024-09-30] MEDS: K and/or MAG REPLACEMENT MC SCH (20:00)
[2024-09-30] MEDS ORDERED: heparin, porcine 5000 units/ml vial SQ SCH (20:00)
[2024-09-30] MEDS: morphine 2 MG/ML inj. syringe IV PRN (20:22)
[2024-09-30] MEDS: furosemide 10 MG/1 ML 10ml inj IV SCH (20:23)
[2024-09-30] MEDS: apixaban 2.5mg tablet PO SCH (20:23)
[2024-09-30] MEDS: ondansetron/PF 4mg/2ml inj IV PRN (20:24)
[2024-09-30 22:30] VITALS: BP 114/60; PULSE 73; RESP 18; TEMP 97.8; O2SAT 100
[2024-10-01 06:00] VITALS: BP 97/55; PULSE 81; RESP 16; TEMP 98.3; O2SAT 98
[2024-10-01 06:08] LABS: BASOPHILS # (AUTO) 0.1 X10'3 (0-0.2); BASOPHILS % (AUTO) 0.9 % (0-1); EOSINOPHILS % (AUTO) 0.4 % (0-6); HEMOGLOBIN 9.5 g/dl (14.0-17.9); LYMPHOCYTES # (AUTO) 1.6 X10'3 (1.1-4.8); LYMPHOCYTES % (AUTO) 13.4 % (21-51); MEAN CORPUSCULAR HEMOGLOBIN 28.7 PG (27.0-31.0); MEAN CORPUSCULAR HGB CONC 31.6 g/dL (33.0-36.5); MEAN CORPUSCULAR VOLUME 90.8 FL (78-98); MEAN PLATELET VOLUME 7.2 FL (7.4-10.4); MONOCYTES # (AUTO) 1.2 X10'3 (0-0.9); MONOCYTES % (AUTO) 9.6 % (2-12); NEUTROPHILS # (AUTO) 9.3 X10'3 (1.8-7.7); NEUTROPHILS % (AUTO) 75.7 % (42-75); PLATELET COUNT 368 X10'3 (140-440); RED CELL DISTRIBUTION WIDTH 16.7 % (11.5-14.5); WHITE BLOOD COUNT 12.2 X10'3 (4.5-11.0)
[2024-10-01 06:55] LABS: ALANINE AMINOTRANSFERASE 9 U/L (12-78); ALBUMIN 3.1 G/DL (3.4-5.0); ALBUMIN/GLOBULIN RATIO 0.9 (1.1-1.5); ALKALINE PHOSPHATASE 70 IU/L (46-116); ANION GAP 13 (8-16); ASPARTATE AMINO TRANSFERASE 11 U/L (10-37); BILIRUBIN,TOTAL 0.7 MG/DL (0.1-1.0); BLOOD UREA NITROGEN 78 MG/DL (7-18); BUN/CREATININE RATIO 32.6 (10.0-20.0); CALCIUM 8.8 MG/DL (8.5-10.1); CHLORIDE 105 MMOL/L (99-107); CREATININE 2.39 MG/DL (0.60-1.10); GLUCOSE 103 MG/DL (70-104); MAGNESIUM 2.3 MG/DL (1.5-2.4); POTASSIUM 4.8 MMOL/L (3.5-5.1); SODIUM 137 MMOL/L (135-145); TOTAL CARBON DIOXIDE 19.5 MMOL/L (24-32); TOTAL PROTEIN 6.5 G/DL (6.4-8.2); eCRCL 20 ML/MIN; eGFR 26 ML/MIN
[2024-10-01] MEDS: CefTRIAXone/D5W-Rocephin 1gm 50 ML IV SCH (08:41)
[2024-10-01 10:00] VITALS: BP 135/45; PULSE 84; RESP 18; TEMP 97.8; O2SAT 97
[2024-10-01] MEDS: pyridostigmine br 60mg tablet PO SCH (13:59)
[2024-10-01 18:00] VITALS: BP 109/64; PULSE 76; RESP 16; TEMP 98.2; O2SAT 97
[2024-10-01] MEDS: sulfamethoxazole/trimethoprim DS (800/160mg) tablet PO SCH (19:47)
[2024-10-01] MEDS: mycophenolate mofetil 250mg capsule PO SCH (19:48)
[2024-10-01] MEDS ORDERED: apixaban 2.5mg tablet PO SCH (20:00)
[2024-10-01 22:00] VITALS: BP 109/57; PULSE 57; RESP 16; TEMP 97.8; O2SAT 99
[2024-10-02] MEDS: acetaminophen 325mg tablet PO PRN (03:57)
[2024-10-02 06:00] VITALS: BP 111/54; PULSE 67; RESP 21; TEMP 98.5; O2SAT 93
[2024-10-02 07:02] LABS: BASOPHILS # (AUTO) 0.1 X10'3 (0-0.2); BASOPHILS % (AUTO) 1.2 % (0-1); EOSINOPHILS # (AUTO) 0.1 X10'3 (0-0.9); EOSINOPHILS % (AUTO) 0.5 % (0-6); HEMATOCRIT 29.6 % (42.0-52.0); HEMOGLOBIN 9.6 g/dl (14.0-17.9); LYMPHOCYTES # (AUTO) 1.1 X10'3 (1.1-4.8); LYMPHOCYTES % (AUTO) 11.3 % (21-51); MEAN CORPUSCULAR HEMOGLOBIN 29.4 PG (27.0-31.0); MEAN CORPUSCULAR HGB CONC 32.4 g/dL (33.0-36.5); MEAN CORPUSCULAR VOLUME 90.7 FL (78-98); MEAN PLATELET VOLUME 7.7 FL (7.4-10.4); MONOCYTES # (AUTO) 0.9 X10'3 (0-0.9); MONOCYTES % (AUTO) 9.2 % (2-12); NEUTROPHILS # (AUTO) 7.7 X10'3 (1.8-7.7); NEUTROPHILS % (AUTO) 77.8 % (42-75); PLATELET COUNT 375 X10'3 (140-440); RED BLOOD COUNT 3.26 X10'6 (4.70-6.10); RED CELL DISTRIBUTION WIDTH 16.5 % (11.5-14.5); WHITE BLOOD COUNT 9.9 X10'3 (4.5-11.0)
[2024-10-02 07:16] LABS: ALANINE AMINOTRANSFERASE 9 U/L (12-78); ALBUMIN/GLOBULIN RATIO 0.9 (1.1-1.5); ALKALINE PHOSPHATASE 68 IU/L (46-116); ANION GAP 13 (8-16); ASPARTATE AMINO TRANSFERASE 11 U/L (10-37); BILIRUBIN,TOTAL 0.5 MG/DL (0.1-1.0); BLOOD UREA NITROGEN 75 MG/DL (7-18); CALCIUM 8.9 MG/DL (8.5-10.1); CHLORIDE 104 MMOL/L (99-107); CREATININE 2.42 MG/DL (0.60-1.10); GLUCOSE 103 MG/DL (70-104); MAGNESIUM 2.4 MG/DL (1.5-2.4); POTASSIUM 4.6 MMOL/L (3.5-5.1); SODIUM 136 MMOL/L (135-145); TOTAL CARBON DIOXIDE 19.2 MMOL/L (24-32); TOTAL PROTEIN 6.5 G/DL (6.4-8.2); eCRCL 20 ML/MIN; eGFR 26 ML/MIN
[2024-10-02 10:00] VITALS: BP 87/48; PULSE 89; RESP 15; TEMP 98; O2SAT 96
[2024-10-02 14:17] LABS: PRO BRAIN NATRIURETIC PEPTIDE > 30000 PG/ML (0-450)
[2024-10-02 18:00] VITALS: BP 104/52; PULSE 65; RESP 16; TEMP 97.5; O2SAT 97
[2024-10-02 20:00] VITALS: RESP 20; O2SAT 95
[2024-10-02 22:00] VITALS: BP 126/56; PULSE 104; RESP 16; TEMP 98.5; O2SAT 97
[2024-10-03 06:00] VITALS: BP 135/87; PULSE 72; RESP 16; TEMP 98.4; O2SAT 96
[2024-10-03 07:45] LABS: BASOPHILS # (AUTO) 0.1 X10'3 (0-0.2); BASOPHILS % (AUTO) 0.6 % (0-1); EOSINOPHILS # (AUTO) 0.1 X10'3 (0-0.9); EOSINOPHILS % (AUTO) 0.8 % (0-6); HEMATOCRIT 32.3 % (42.0-52.0); HEMOGLOBIN 10.3 g/dl (14.0-17.9); LYMPHOCYTES # (AUTO) 1.1 X10'3 (1.1-4.8); MEAN CORPUSCULAR HEMOGLOBIN 29.1 PG (27.0-31.0); MEAN CORPUSCULAR HGB CONC 31.9 g/dL (33.0-36.5); MEAN CORPUSCULAR VOLUME 91.2 FL (78-98); MEAN PLATELET VOLUME 7.1 FL (7.4-10.4); NEUTROPHILS # (AUTO) 6.3 X10'3 (1.8-7.7); NEUTROPHILS % (AUTO) 73.6 % (42-75); PLATELET COUNT 366 X10'3 (140-440); RED BLOOD COUNT 3.54 X10'6 (4.70-6.10); RED CELL DISTRIBUTION WIDTH 16.3 % (11.5-14.5); WHITE BLOOD COUNT 8.5 X10'3 (4.5-11.0)
[2024-10-03 08:00] VITALS: RESP 16; O2SAT 96
[2024-10-03 08:07] LABS: ALANINE AMINOTRANSFERASE 8 U/L (12-78); ALBUMIN 3.3 G/DL (3.4-5.0); ALBUMIN/GLOBULIN RATIO 0.9 (1.1-1.5); ALKALINE PHOSPHATASE 75 IU/L (46-116); ANION GAP 12 (8-16); ASPARTATE AMINO TRANSFERASE 14 U/L (10-37); BILIRUBIN,TOTAL 0.5 MG/DL (0.1-1.0); BLOOD UREA NITROGEN 71 MG/DL (7-18); BUN/CREATININE RATIO 29.7 (10.0-20.0); CALCIUM 8.7 MG/DL (8.5-10.1); CHLORIDE 106 MMOL/L (99-107); CREATININE 2.39 MG/DL (0.60-1.10); GLUCOSE 96 MG/DL (70-104); MAGNESIUM 2.2 MG/DL (1.5-2.4); POTASSIUM 4.6 MMOL/L (3.5-5.1); SODIUM 139 MMOL/L (135-145); TOTAL CARBON DIOXIDE 21.1 MMOL/L (24-32); TOTAL PROTEIN 6.9 G/DL (6.4-8.2); eCRCL 20 ML/MIN; eGFR 26 ML/MIN
[2024-10-03 10:00] VITALS: BP 108/67; PULSE 98; RESP 14; TEMP 97.9; O2SAT 97
[2024-10-03 18:00] VITALS: BP 120/57; PULSE 52; RESP 14; TEMP 98.3; O2SAT 96
[2024-10-03 21:00] VITALS: O2SAT 96
[2024-10-03 22:00] VITALS: BP 130/59; PULSE 81; RESP 17; TEMP 97.7; O2SAT 98
[2024-10-04] MEDS: MEROPENEM 1GM/NS 100ML IVPB 100 ML IV SCH (00:26)
[2024-10-04] MEDS: HYDROcodone/acetaminophen 5mg/325mg tablet PO PRN (02:30)
[2024-10-04] MEDS ORDERED: MEROPENEM 1GM/NACL 50ML IVPB 50 ML IV SCH (06:21)
[2024-10-04 07:00] LABS: BASOPHILS # (AUTO) 0.1 X10'3 (0-0.2); BASOPHILS % (AUTO) 0.7 % (0-1); EOSINOPHILS # (AUTO) 0.1 X10'3 (0-0.9); EOSINOPHILS % (AUTO) 1.1 % (0-6); HEMATOCRIT 31.6 % (42.0-52.0); HEMOGLOBIN 10.2 g/dl (14.0-17.9); LYMPHOCYTES # (AUTO) 1.2 X10'3 (1.1-4.8); LYMPHOCYTES % (AUTO) 14.9 % (21-51); MEAN CORPUSCULAR HEMOGLOBIN 29.3 PG (27.0-31.0); MEAN CORPUSCULAR HGB CONC 32.2 g/dL (33.0-36.5); MEAN CORPUSCULAR VOLUME 90.9 FL (78-98); MEAN PLATELET VOLUME 7.7 FL (7.4-10.4); MONOCYTES # (AUTO) 1.1 X10'3 (0-0.9); MONOCYTES % (AUTO) 14.6 % (2-12); NEUTROPHILS # (AUTO) 5.4 X10'3 (1.8-7.7); NEUTROPHILS % (AUTO) 68.7 % (42-75); PLATELET COUNT 354 X10'3 (140-440); RED BLOOD COUNT 3.48 X10'6 (4.70-6.10); RED CELL DISTRIBUTION WIDTH 16.6 % (11.5-14.5); WHITE BLOOD COUNT 7.8 X10'3 (4.5-11.0)
[2024-10-04 07:56] LABS: ALBUMIN 3.1 G/DL (3.4-5.0); ALBUMIN/GLOBULIN RATIO 0.9 (1.1-1.5); ALKALINE PHOSPHATASE 69 IU/L (46-116); ANION GAP 14 (8-16); ASPARTATE AMINO TRANSFERASE 16 U/L (10-37); BILIRUBIN,TOTAL 0.4 MG/DL (0.1-1.0); BLOOD UREA NITROGEN 62 MG/DL (7-18); CALCIUM 8.4 MG/DL (8.5-10.1); CHLORIDE 104 MMOL/L (99-107); GLUCOSE 101 MG/DL (70-104); MAGNESIUM 2.2 MG/DL (1.5-2.4); POTASSIUM 4.3 MMOL/L (3.5-5.1); SODIUM 139 MMOL/L (135-145); TOTAL CARBON DIOXIDE 20.6 MMOL/L (24-32); TOTAL PROTEIN 6.7 G/DL (6.4-8.2); eCRCL 21 ML/MIN; eGFR 27 ML/MIN
[2024-10-04 08:18] LABS: ALANINE AMINOTRANSFERASE 6 U/L (12-78)
[2024-10-04] MEDS: cefpodoxime proxetil 100mg tablet PO SCH (09:09)
[2024-10-04 09:49] VITALS: RESP 16; O2SAT 97
[2024-10-04] MEDS ORDERED: FURO-150 PO (11:56)
[2024-10-04] MEDS ORDERED: CEFP100T7 PO (11:56)
[2024-10-04] MEDS ORDERED: LACT1CAP26 PO (11:56)
== END 2024-10-04 16:57 | disposition home health service (06) | DRG 689 ==
LOC: ER 13:48 → ED HOLD 17:20 → ORTHO 4S 22:20
PROVIDERS: ADMIT Internal Medicine; ATTEND Internal Medicine
DX: N39.0 Urinary tract infection, site not specified (principal); N17.0 Acute kidney failure with tubular necrosis; I13.2 Hypertensive heart and chronic kidney disease with heart failure and with stage 5 chronic kidney disease, or end stage renal disease; R65.10 Systemic inflammatory response syndrome (SIRS) of non-infectious origin without acute organ dysfunction; J98.11 Atelectasis; I50.22 Chronic systolic (congestive) heart failure; N18.5 Chronic kidney disease, stage 5; I48.91 Unspecified atrial fibrillation; R73.9 Hyperglycemia, unspecified; Z66 Do not resuscitate; B96.20 Unspecified Escherichia coli [E. coli] as the cause of diseases classified elsewhere; Z83.3 Family history of diabetes mellitus; Z95.810 Presence of automatic (implantable) cardiac defibrillator; Z88.8 Allergy status to other drugs, medicaments and biological substances; Z83.2 Family history of diseases of the blood and blood-forming organs and certain disorders involving the immune mechanism; Z88.1 Allergy status to other antibiotic agents
CPT/HCPCS: 36415; 71045; 80048; 80053; 81001; 83036; 83605; 83735; 83880; 84145; 84484; 85025; 87040; 87077; 87081; 87088; 87186; 96365; 97116; 97161; 97530; 97535; 99285; A4615; A6258; A6590; G0378; J0696; J1940; J2185; J2270; J2405; J7030; J7517